=== PATIENT | male | born 1990 | race Caucasian/White ===

== ENCOUNTER → 2022-10-07 | Outpatient (CLI) | payer OTHER | END | disposition home or self-care (01) | LOC: LAB SHORT 09:59 → LAB 09:59 | DX: J02.9 Acute pharyngitis, unspecified (principal) | CPT/HCPCS: 87081 ==

== ENCOUNTER → 2024-07-01 | Outpatient (CLI) | payer OTHER ==
[~2024-07-01] MED LIST: AMOCLA500 PO; Acetaminophen650 M1 PO; MIRALAX17 GM PO; Norco 5-325 Ta1 EACH PO; ZOLOFT50 MG PO
== END ==
LOC: LAB SHORT 07-01 07:30 → LAB 07:30 → LAB SHORT 07:30
DX: K21.9 Gastro-esophageal reflux disease without esophagitis (principal)
CPT/HCPCS: 87338